=== PATIENT | male | born 1975 | race American Indian/Alaskan Native ===

== ENCOUNTER 2018-03-31 16:27 | Inpatient (IN) | payer SELFPAY ==
[~2018-03-31 16:27] MED LIST: NACL 0.9% 1000 ML 0 ML ONE
[2018-03-31] MEDS ORDERED: NACL 0.9% 1000 ML 2,000 ML IV ONE (16:33)
--- NOTE | 2018-03-31 16:34 | Emergency Department Report ---
<ARIEL ROLLINS - Last Filed: 03/31/18 19:52> ED General Adult HPI - General Chief complaint: Altered Mental Status Stated complaint: UNRESPONSIVE Time Seen by Provider: 03/31/18 16:31 Source: patient, EMS (verbal report received from EMS.ems notes not available at time of chart dictation) Mode of arrival: Stretcher Limitations: No Limitations - History of Present Illness Initial comments: This is a 42-year-old gentleman who is not known to this provider previously. He is brought to the hospital by EMS for unresponsiveness. As per verbal report from EMS, patient was at a local gas station, may have been stung on the left side of the neck, and collapsed. Patient was initially breathing adequately with field, unresponsive and hypotensive. Upon arrival to the ER, he was still hypotensive with a blood pressure in the 90s but became much more awake and alert. He denies headache, neck pain, chest pain, abdominal pain, shortness of breath. He denies extremity weakness, numbness, cough and shortness of breath. He denies DVT and pulmonary embolus risk factors. The patient indicates that he thinks that something stung him. He is not sure what. The patient also indicates that he takes Ativan intermittently to help him out with sleep. He has no recollection of the event, and has no complaints at this time -: Sudden Improves with: none Worsens with: none Associated Symptoms: confusion, syncope, weakness - Related Data Home Medications Medication Instructions Recorded Confirmed Last Taken Ibuprofen/Diphenhydramine Cit [Ra 2 each PO HS 03/31/18 03/31/18 03/30/18 Ibuprofen Pm Caplet] Allergies Allergy/AdvReac Type Severity Reaction Status Date / Time No Known Allergies Allergy Verified 03/31/18 16:35 ED Review of Systems ROS: Stated complaint: UNRESPONSIVE Other details as noted in HPI Constitutional: malaise, weakness. denies: fever Eyes: denies: eye discharge ENT: denies: epistaxis Respiratory: denies: cough, shortness of breath Cardiovascular: syncope. denies: chest pain Gastrointestinal: denies: abdominal pain, hematemesis, melena, hematochezia Genitourinary: denies: dysuria Musculoskeletal: denies: back pain, arthralgia, myalgia Skin: denies: lesions Neurological: weakness, confusion Psychiatric: anxiety ED Past Medical Hx - Medications Home Medications: Home Medications Medication Instructions Recorded Confirmed Last Taken Type Ibuprofen/Diphenhydramine Cit [Ra 2 each PO HS 03/31/18 03/31/18 03/30/18 History Ibuprofen Pm Caplet] ED Physical Exam - General Limitations: No Limitations General appearance: alert, anxious - Head Head exam: Present: atraumatic, normocephalic - Eye Eye exam: Present: normal appearance, EOMI. Absent: nystagmus - ENT ENT exam: Present: normal exam, normal orophraynx, mucous membranes moist - Neck Neck exam: Present: normal inspection, full ROM - Respiratory Respiratory exam: Present: normal lung sounds bilaterally. Absent: respiratory distress - Cardiovascular Cardiovascular Exam: Present: normal rhythm, tachycardia, normal heart sounds. Absent: systolic murmur, diastolic murmur, rubs, gallop - GI/Abdominal GI/Abdominal exam: Present: soft, normal bowel sounds. Absent: distended, tenderness, guarding, rebound, rigid, pulsatile mass - Rectal Rectal exam: Present: deferred - Extremities Exam Extremities exam: Present: normal inspection, full ROM, normal capillary refill , other (2+ pulses noted in the bilateral upper, lower extremities. Compartments soft. No long bony tenderness. The pelvis is stable.). Absent: tenderness, pedal edema, joint swelling, calf tenderness - Back Exam Back exam: Present: normal inspection, full ROM. Absent: tenderness, CVA tenderness (R), paraspinal tenderness, vertebral tenderness - Neurological Exam Neurological exam: Present: alert, oriented X3, CN II-XII intact, other ( Extraocular movements intact. Tongue midline. No facial droop. Facial sensation intact to light touch in the V1, V2, V3 distribution bilaterally. 5 and 5 strength in 4 extremities.. Sensation is intact to light touch in 4 extremities.). Absent: motor sensory deficit - Psychiatric Psychiatric exam: Present: anxious - Skin Skin exam: Present: warm, dry, intact, normal color. Absent: rash ED Course Vital Signs 03/31/18 03/31/18 03/31/18 16:18 16:30 16:35 Temperature 96.4 F L Pulse Rate 101 H 118 H Respiratory 28 H 18 Rate Blood Pressure 95/53 95/53 95/53 Blood Pressure [Right] O2 Sat by Pulse 89 88 Oximetry 03/31/18 03/31/18 03/31/18 16:46 16:57 17:00 Temperature Pulse Rate 93 H 86 88 Respiratory 21 19 11 L Rate Blood Pressure 111/71 123/75 Blood Pressure 123/75 [Right] O2 Sat by Pulse 97 95 97 Oximetry 03/31/18 03/31/18 03/31/18 17:16 17:25 17:30 Temperature Pulse Rate 89 89 Respiratory 16 19 14 Rate Blood Pressure 120/70 120/70 Blood Pressure [Right] O2 Sat by Pulse 98 99 98 Oximetry 03/31/18 03/31/18 03/31/18 17:54 18:01 18:15 Temperature Pulse Rate 83 90 Respiratory 10 L 14 Rate Blood Pressure 125/74 117/75 Blood Pressure [Right] O2 Sat by Pulse 97 99 99 Oximetry 03/31/18 03/31/18 03/31/18 18:31 18:45 19:39 Temperature 98.3 F Pulse Rate 89 87 89 Respiratory 19 14 15 Rate Blood Pressure 121/76 120/79 Blood Pressure 123/83 [Right] O2 Sat by Pulse 97 98 98 Oximetry - Reevaluation(s) Reevaluation #1: 03/31/18 16:44 Differential diagnosis, including but not limited to: Anaphylaxis, anaphylactoid reaction, hypoxemia, hypoxemic respiratory failure, intracranial injury, intracranial hemorrhage, dehydration, orthostasis, vagal event, structural cardiac disease, arrhythmia, acute coronary syndrome, electrolyte derangement 03/31/18 16:45 Assessment and plan: 42-year-old male who is currently alert to name, month, location, clinically sober, with tachycardia, hypotension, and hypoxemic respiratory failure with a PaO2 of 42. He reports being in his usual state of health until perhaps being stung by something. Uncertain if this is in the spectrum of anaphylaxis less anaphylactoid reaction. He will be given IV fluids , supplemental oxygen, and we will give a trial of subcutaneous epinephrine. Noncontrast CT scan of the brain, and CT scan of the chest pending. The patient does not appear to be intoxicated and he is clinically sober at this time. He reports he is amenable to admission., Reevaluation #2: 03/31/18 17:50 Patient blood pressure remains acceptable and tachycardia is improving. He indicates he feels much better. He is found to be hypokalemic. This will be repleted. Reevaluation #3: 03/31/18 18:57 Patient's repeat lactic acid is elevated when compared to prior. However he is no longer tachycardic or hypotensive. He indicates that he believes a wasp stung him. His vital signs have globally improved and he clinically looks much improved. Therefore, it is my pain that he does not require an epinephrine drip or additional epinephrine. Uncertain as to the etiology of his persistent lactic acidosis, given his recent insect sting, may have a degree of tissue dysoxia. However, based on current clinical scenario and picture, it is very likely that patient's etiology is coming from bacteremia or serious bacterial infection. This may be a form of distributive shock instead. Therefore, it is my opinion that the patient does not require targeted antibiotic therapy, or blood cultures. He requires continued resuscitation, and additional IV fluids are ordered. CT scan of the brain interpretation is pending. CT scan of the chest interpretation is pending. Reevaluation #4: 03/31/18 19:52 cta chest, ct head negative dr saravia will pass on to night hospitalist dr newsome will also contact night hospitalist ED Medical Decision Making - Lab Data Result diagrams: 03/31/18 16:38 03/31/18 16:38 Vital Signs 03/31/18 16:35 Temperature 96.4 F L Pulse Rate 118 H Respiratory 18 Rate Blood Pressure 95/53 O2 Sat by Pulse 88 Oximetry - EKG Data When compared to previous EKG there are: previous EKG unavailable 03/31/18 16:46 Sinus tachycardia, 103 bpm, QTC prolonged, normal axis, motion artifact, not a STEMI - Radiology Data Radiology results: pending, report reviewed, image reviewed Critical care attestation.: If time is entered above; I have spent that time in minutes in the direct care of this critically ill patient, excluding procedure time. ED Disposition Clinical Impression: Allergy to bee sting Anaphylactic reaction Qualifiers: Encounter type: initial encounter Qualified Code(s): T78.2XXA - Anaphylactic shock, unspecified, initial encounter Syncope Qualifiers: Syncope type: unspecified Qualified Code(s): R55 - Syncope and collapse Disposition: OP ADMIT IP TO THIS HOSP Is pt being admited?: Yes Condition: Good Instructions: Syncope (ED) Referrals: PRIMARY CARE, [Primary Care Provider] - 3-5 Days <BARBARA LEDBETTER - Last Filed: 03/31/18 21:41> ED Course - Reevaluation(s) Reevaluation #5: 03/31/18 21:36 On reevaluation patient is still medically stable. CT scan of head and chest are negative. I consulted the hospitalist on-call Dr. Cruz. He will admit patient to the hospital for further evaluation and management. ED Medical Decision Making - Lab Data Result diagrams: 03/31/18 16:38 03/31/18 16:38 ED Disposition Is pt being admited?: Yes Does the pt Need Aspirin: No Time of Disposition: 21:40
[2018-03-31 16:55] LABS: Mean Corpuscular HGB Conc 34 % (32-34); Mean Corpuscular Hemoglobin 30 pg (28-32); Mean Corpuscular Volume 89 fl (84-94); Platelet Count 249 K/mm3 (140-440); Red Blood Count 4.96 M/mm3 (3.65-5.03); Red Cell Distribution Width 13.1 % (13.2-15.2)
[2018-03-31] MEDS ORDERED: ADRENALINE P/F SUB-Q ONE (16:55)
[2018-03-31 17:04] LABS: INR 0.88 (0.87-1.13)
[2018-03-31 17:05] LABS: Thrombin Time 55.7 Sec. (15.1-19.6)
[2018-03-31 17:08] LABS: Alanine Aminotransferase 24 units/L (7-56); Albumin 4.1 g/dL (3.9-5); BUN/Creatinine Ratio 8; Blood Urea Nitrogen 10 mg/dL (9-20); Calcium 8.8 mg/dL (8.4-10.2); Hemolysis Index 11
[2018-03-31 17:14] LABS: Creatine Kinase MB 2.6 ng/mL (0.0-4.0)
[2018-03-31] MEDS ORDERED: K-DUR PO ONE (17:49)
--- NOTE | 2018-03-31 18:05 | XRay Report ---
FINAL REPORT EXAM: XR CHEST 1V AP HISTORY: Hypoxia tachycardia TECHNIQUE: AP portable view of the chest PRIORS: None. FINDINGS: Lines, tubes, and devices: N/A Lungs and pleura: Trachea is normal in position. Lungs are clear of infiltrate, pleural effusion, vascular congestion, or pneumothorax. Cardiomediastinal silhouette: Cardiac and mediastinal silhouettes are unremarkable. Other: Bony structures are intact. IMPRESSION: No acute cardiopulmonary process seen.
[2018-03-31 18:07] LABS: Basophils % (Manual) 0 % (0.0-1.8); Total Cells Counted 100
[2018-03-31 18:10] LABS: Anisocytosis 1+
[2018-03-31] MEDS ORDERED: NACL 0.9% 1000 ML 1,000 ML ONE ×2 (18:55→23:13)
[2018-03-31] MEDS: KCL 10MEQ/100ML 10 MEQ/100 ML BAG IV SCH ×4 (19:05→23:27)
[2018-03-31] MEDS ORDERED: NACL 0.9% 1000 ML 1,000 ML IV ONE (19:10)
[2018-03-31 19:26] LABS: Bilirubin,Urine NEG (Negative); Blood,Urine MOD (Negative); Color,Urine Yellow (Yellow); Urobilinogen,Urine < 2.0 mg/dL (<2.0)
[2018-03-31 19:29] LABS: Amphetamine Screen,Urine PRESUMPTIVE NEGATIVE; Benzodiazepines Screen,Urine PRESUMPTIVE NEGATIVE; Cannabinoid Screen,Urine PRESUMPTIVE NEGATIVE; Cocaine Screen,Urine PRESUMPTIVE NEGATIVE; Methadone Screen,Urine PRESUMPTIVE NEGATIVE; Opiate Screen,Urine PRESUMPTIVE NEGATIVE
--- NOTE | 2018-03-31 19:49 | Cat Scan Report ---
FINAL REPORT EXAM: CT ANGIO CHEST HISTORY: hypoxia, syncope, hypotension TECHNIQUE: Enhanced CT of the chest at 1.25 mm axial intervals following a pulmonary embolism protocol. Coronal and sagittal imaging were also obtained. Coronal oblique MIP projections were obtained. Contrast: 100 ml of Omnipaque 350 given IV. PRIORS: None. FINDINGS: There is no evidence for pulmonary embolism in the main pulmonary artery, right and left pulmonary arteries or their major distributions. However, CT does not exclude distal pulmonary emboli. Otherwise, the lung parenchyma are expanded and clear with no evidence for parenchymal nodules, infiltrates, congestion, or pleural effusion. There is no evidence for mediastinal, hilar, or axillary adenopathy. Cardiovascular structures are within normal limits. No evidence for ventricular chamber enlargement is seen. Images through the lung bases include the upper abdomen which show no abnormalities of the visualized abdominal viscera. Bony structures demonstrate no focal abnormalities. IMPRESSION: No evidence for pulmonary embolism. Negative CT of the chest.
--- NOTE | 2018-03-31 19:51 | Cat Scan Report ---
FINAL REPORT EXAM: CT HEAD/BRAIN WO CON HISTORY: Stroke symptoms TECHNIQUE: Standard unenhanced CT of the head at 5.0 millimeter axial increments. PRIORS: None. FINDINGS: The ventricular system is normal in size and configuration. There is no evidence for parenchymal volume loss. There is no evidence for mass lesion, mass effect, midline shift, acute intracranial hemorrhage, or acute ischemia/ infarction. No evidence for acute skull fracture is seen. No abnormality in the overlying scalp soft tissues is seen. Visualized paranasal sinuses are clear. IMPRESSION: Negative CT of the head. No acute intracranial process noted.
[2018-03-31] MEDS ORDERED: DECADRON IV ONE (19:57)
[2018-03-31] MEDS ORDERED: BENADRYL IV PRN (22:21)
[2018-03-31] MEDS ORDERED: TYLENOL PO PRN (22:24)
[2018-03-31] MEDS ORDERED: ZOFRAN IV PRN (22:25)
[2018-03-31] MEDS ORDERED: KCL 10MEQ/100ML 10 MEQ/100 ML BAG IV ONE ×2 (22:26→23:08)
[2018-04-01] MEDS ORDERED: NACL 0.9% 250ML 250 ML IV ONE
[2018-04-01] MEDS: SOLU-Medrol IV SCH ×2 (00:06→09:59)
[2018-04-01] MEDS ORDERED: BENADRYL IV PRN (05:05)
--- NOTE | 2018-04-01 06:04 | History and Physical Report ---
CHIEF COMPLAINT: Altered mental status. OTHER COMPLAINT: Includes swelling of the mouth, near-syncopal feeling, and difficulty in breathing. HISTORY OF PRESENT ILLNESS: The patient is a 42-year-old male who said he was driving in his car when he got stung by a bee. The patient subsequently after the bee sting started having swelling in his mouth and almost passed out, started having difficulty in breathing, and eventually became unresponsive with low blood pressure. EMS was called and when the patient was brought to the Emergency Room, his blood pressure was still in the 90s. He denied history of chest pain. Denied history of abdominal pain. He was seen in the Emergency Room and treated for anaphylactic shock and recommended for admission. PAST MEDICAL HISTORY: Unremarkable. PAST SURGICAL HISTORY: Unremarkable. FAMILY HISTORY: Noncontributory. SOCIAL HISTORY: The patient does not smoke, does not drink alcohol, and does not use illicit drugs. MEDICATIONS: The patient is on ibuprofen/diphenhydramine two by mouth at bedtime. ALLERGIES: There are no known drug allergies. REVIEW OF SYSTEMS: CONSTITUTIONAL: There is no fever, no chills, no diaphoresis. HEENT: There is no headache or sore throat. There is swelling in the mouth. CARDIOVASCULAR: There is no chest pain or orthopnea. RESPIRATORY: Shortness of breath noted. No cough. GASTROINTESTINAL: There is no nausea, no vomiting, no abdominal pain, diarrhea or constipation. NEUROLOGICAL: Change in mental status noted, weakness noted, unresponsiveness noted. MUSCULOSKELETAL: There is no joint pain or swelling. DERMATOLOGICAL: There is no skin rash or itching. GENITOURINARY: There is no dysuria, hematuria, or flank pain. Rest of system review is normal. PHYSICAL EXAMINATION: GENERAL: At the time of exam, the patient was found to be alert, oriented x 3, and not in acute distress. VITAL SIGNS: Shows temperature of 96.4 degrees Fahrenheit, pulse of 118, respirations 18, blood pressure 95/53, O2 sat of 88% on room air. HEENT: Showed pupils to be equal, round, reactive to light and accommodation. Extraocular muscles are intact. NECK: Supple with no JVD or carotid bruit. CARDIOVASCULAR: Showed normal first and second heart sounds with no gallops or murmurs. RESPIRATORY: Showed good air entry on both sides of the lungs with no abnormal breath sounds. GASTROINTESTINAL SYSTEM: Showed abdomen to be full, soft, nontender with no organomegaly or rigidity. NEUROLOGIC: Shows no focal deficits. MUSCULOSKELETAL SYSTEM: Showed no joint swelling or tenderness. DERMATOLOGICAL: Showed no skin rash. GENITOURINARY: Showing no costovertebral angle tenderness. PERTINENT LABORATORY AND IMAGING STUDIES: The patient had CBC done that came back with normal white count, normal hemoglobin, and normal hematocrit with CBC differential showing elevated lymphocyte count of 59% and low segmented neutrophils. The patient's coagulation studies show elevated thrombin time of 55.7, otherwise unremarkable. The patient's ABG shows normal pH, normal pCO2, and low pO2 and also low O2 sat of 77% and this was done on room air. The patient's chemistry shows normal sodium with low potassium level of 2.9, elevated blood glucose of 235, elevated lactic acid level of 3.1. Cardiac enzymes shows high total CPK of 243 with normal CK-MB, normal percentage index, and unremarkable troponin level. Thyroid stimulating hormone level is normal. The patient's urinalysis came back unremarkable. Toxicology screen was unremarkable and salicylate and Tylenol levels were normal. The patient's alcohol level was unremarkable. The patient had a CT angiogram of the chest done that shows no pulmonary embolism. The patient also had CT of the head without contrast done that shows no acute intracranial lesions. The patient's chest x-ray showed no acute cardiopulmonary lesion. DIAGNOSES: 1. Anaphylactic shock. 2. Hypokalemia. 3. Hyperglycemia. PLAN: 1. The patient will be admitted to telemetry. 2. The patient will be on IV Solu-Medrol 60 mg q. 8 hours. 3. The patient will be on Tylenol 650 mg by mouth every 4 hours. 4. The patient will be on diphenhydramine or Benadryl 25 mg IV q. 6 hours as needed for allergic reaction. 5. The patient will be on Pepcid tablet 20 mg by mouth twice daily and DVT prophylaxis will be through heparin 5000 units subcutaneously q. 12 hours. 6. The patient will be on IV normal saline running at 100 mL an hour. 7. The patient will have IV potassium chloride or K-rider at 10 mEq in 100 mL of normal saline, which will be given over 1 hour x 3 doses. 8. The patient will have basic metabolic panel checked in the morning and will have Accu-Chek every hour x 4 checks. 9. The patient will be on oxygen by nasal cannula at 2 liter per minute. JOB# [id number] OCN/NTS NAOMID
[2018-04-01 07:46] LABS: BUN/Creatinine Ratio 9; Blood Urea Nitrogen 6 mg/dL (9-20); Calcium 9.9 mg/dL (8.4-10.2); Hemolysis Index 5
[2018-04-01] MEDS ORDERED: NACL 0.9% 1000 ML 1,000 ML IV SCH (08:00)
--- NOTE | 2018-04-01 09:21 | Event Note ---
Date: 04/01/18 Patient with anaphylactic reaction after bee. Continue [id number], pepcid, Benadryl
[2018-04-01] MEDS ORDERED: PEPCID PO SCH (10:00)
[2018-04-01] MEDS ORDERED: HEPARIN SUB-Q SCH (10:00)
--- NOTE | 2018-04-01 12:08 | Discharge Summary ---
Providers - Providers Date of Admission: 03/31/18 22:16 Date of discharge: 04/01/18 Attending physician: ARIEL BOCANEGRA Primary care physician: VARUN RIGGINS MD Hospitalization Condition: Good Disposition: DC-01 TO HOME OR SELFCARE Core Measure Documentation - Palliative Care Palliative Care/ Comfort Measures: Not Applicable - Core Measures Any of the following diagnoses?: none Exam - Constitutional Vitals: Temp Pulse Resp BP Pulse Ox 98.7 F 92 H 17 112/58 99 04/01/18 07:41 04/01/18 10:00 04/01/18 06:44 04/01/18 07:41 04/01/18 07:41 Plan Activity: no restrictions Diet: regular Additional Instructions: 1.Follow up with PCP or [facility] in 1 week. 2.No driving or operating any machine while on Benadryl. Follow up with: PRIMARY CARE, [Primary Care Provider] - 3-5 Days Prescriptions: diphenhydrAMINE [Benadryl CAP] 25 mg PO Q8HR #20 capsule Famotidine [Pepcid] 20 mg PO BID #30 tablet Prednisone [predniSONE 5 mg (6-Day Pack, 21 Tabs)] 5 mg PO .TAPER #1 tab.ds.pk
[2018-04-01 12:21] VITALS: BP 111/67
== END 2018-04-01 14:10 | disposition home or self-care (01) | DRG 918 ==
LOC: ED 16:27 → 4A 22:16
PROVIDERS: ADMIT Internal Medicine; ATTEND Internal Medicine
DX: T63.441A Toxic effect of venom of bees, accidental (unintentional), initial encounter (principal); T78.2XXA Anaphylactic shock, unspecified, initial encounter; R55 Syncope and collapse; F41.9 Anxiety disorder, unspecified; E87.6 Hypokalemia; R73.9 Hyperglycemia, unspecified; Y92.89 Other specified places as the place of occurrence of the external cause; Z91.030 Bee allergy status
CPT/HCPCS: 36415; 70450; 71045; 71275; 80048; 80053; 80307; 80320; 81001; 82140; 82550; 82553; 82803; 83735; 84443; 84484; 85007; 85025; 85610; 85670; 85730; 86900; 86901; 93005; 93010; 96365; 96372; 99406; G0480; J0171; J1100; J1644; J2920; J3480; J7030; J7050; Q9967